=== PATIENT | female | born 1975 | race Caucasian/White ===

== ENCOUNTER 2017-01-12 14:56 | Emergency (ER) | payer SELFPAY ==
[~2017-01-12] VITALS: Ht 162.6 cm; Wt 70.0 kg
[2017-01-12 15:18] VITALS: BP 126/88
[2017-01-12] MEDS ORDERED: ACETAMINOPHEN 500MG TABLET PO ONE (17:30)
== END 2017-01-12 18:30 | disposition home or self-care (01) ==
LOC: ER 15:23
DX: S00.83XA Contusion of other part of head, initial encounter (principal); V49.88XA Car occupant (driver) (passenger) injured in other specified transport accidents, initial encounter; Y93.89 Activity, other specified; Y92.410 Unspecified street and highway as the place of occurrence of the external cause; Y99.8 Other external cause status
CPT/HCPCS: 99283